=== PATIENT | female | born 1950 | race Caucasian/White ===

== ENCOUNTER 2016-11-17 05:33 | Inpatient (IN) | payer BC, OTHER ==
[2016-11-04 13:12] LABS: HEMATOCRIT 47.3 % (37.0-47.0); HEMOGLOBIN 16.4 gm/dL (12.0-15.0); MCH 33.2 pg (26.0-34.0); MCHC 34.7 g/dL (28.0-37.0); MCV 95.7 fL (80.0-100.0); RBC 4.94 mil/uL (4.20-5.00); RDW 13.7 % (10.5-14.5); WBC 7.5 thou/uL (4.0-11.0)
[2016-11-04 13:16] LABS: URINE BILIRUBIN 2+ (Negative); URINE BLOOD TRACE (Negative); URINE GLUCOSE-RANDOM* NEGATIVE (Negative); URINE KETONES TRACE (Negative); URINE LEUKOCYTES-REFLEX TRACE (Negative); URINE PROTEIN (DIPSTICK) 2+ (Negative); URINE SPECIFIC GRAVITY >= 1.030 (1.003-1.035)
[2016-11-04 13:18] LABS: URINE COLOR DARK YELLOW
[2016-11-04 13:19] LABS: ICTOTEST (BILI CONFIRMATORY) Positive (Negative)
[2016-11-04 13:26] LABS: INR 1.1; PROTIME 11.3 Seconds (9.3-11.4)
[2016-11-04 13:29] LABS: ALBUMIN 4.2 g/dL (3.4-5.0); CALCIUM 10.9 mg/dL (8.5-10.1); CREATININE 1.9 mg/dL (0.6-1.0); POTASSIUM 4.4 mmol/L (3.5-5.1); TOTAL BILIRUBIN 1.4 mg/dL (<0.1-1.0); TOTAL PROTEIN 8.3 g/dL (6.4-8.2)
[2016-11-04 13:54] LABS: HYALINE CASTS 0-3 Few /LPF (None Seen); SQUAMOUS 4-10 Moderate /LPF (0-3)
[2016-11-04 13:55] LABS: CALCIUM OXALATE 4-10 Moderate /LPF (None Seen)
[2016-11-04 13:56] LABS: URINE RBC 0-2 Rare /HPF (0-2); URINE WBC-REFLEX >25 Many /HPF (0-5)
[2016-11-05 05:13] LABS: GLYCOHEMOGLOBIN (HGB A1C) 9.6 % (4.8-5.6)
[~2016-11-17] VITALS: Ht 172.7 cm; Wt 105.2 kg
[2016-11-17] VITALS (10 sets, daily range): BP systolic 103–129; BP diastolic 54–84
--- NOTE | ~2016-11-17 | O ---
[facility] [place] [address] OPERATIVE REPORT Name: EM EDWARDS Room #: 542-P [facility] IN M.R.#: [id number] Admission: 11/17/16 Attend Phys: Nathaniel Espino MD Discharge: 11/20/16 Date of : 54 Report #: [id number] THIS REPORT FOR: //name// CC: Akira Estrella DATE OF SERVICE: 11/17/2016 PREOPERATIVE DIAGNOSES: 1. Left knee degenerative joint disease, severe. 2. Obesity with body mass index of 32.23. POSTOPERATIVE DIAGNOSES: 1. Left knee degenerative joint disease, severe. 2. Obesity with body mass index of 32.23. PROCEDURE: Left total knee arthroplasty. SURGEON: Nathaniel Espino MD. ENTRY ANALYST: Charles Jacobs, nurse practitioner. INDICATIONS FOR ENTRY ANALYST: During the course of operation, extensive manipulation, retraction, and limb positioning was required. This was afforded to me by my asset protection assistant. ANESTHETIC: General. INDICATIONS: See hospital H and P. IMPLANTS UTILIZED: We used a DePuy PFC knee system. We used a 4 narrow femoral component, size 3 tibia, 10 mm insert with a 41 oval dome patella. DESCRIPTION OF PROCEDURE: After adequate general anesthesia had been obtained, the patient's left lower extremity was prepped and draped in the usual meticulous sterile fashion. Limb was exsanguinated with gravity. Tourniquet was inflated to 350 torr. Anterior midline incision was made, subQ divided sharply. Hemostasis obtained with electrocautery. Medial parapatellar incision was made. Infrapatellar fat pad excised. Medial release performed. The drill was used to drill the distal femur. This hole was enlarged, irrigated, suctioned, and the intramedullary guide placed the full length of the femur. Distal femoral cutting guide pinned in to appropriate height. Distal femoral cut was made. We took a measurement and 4 gave us the best reapproximation of the patient's anatomy. We then marked the femur and impacted the cutting guide into place. The anterior, posterior, and chamfer cuts were made. Nalini was [facility] [address] [place] [address] OPERATIVE REPORT Name: EM EDWARDS Room #: 542-P DIS IN M.R.#: [id number] Admission: 11/17/16 Attend Phys: Nathaniel Espino MD Discharge: 11/20/16 Date of : 54 Report #: [id number] used to remove additional osteophytes. At this time, the ACL was transected, tibia translated anteriorly, menisci were excised. Drill was used to drill the central portion of the tibia. This hole was enlarged, irrigated, suctioned, and the intramedullary guide placed the full length of tibia. Proximal tibial cutting guide placed at appropriate height. Proximal tibial cut was made. 3 tray gave us the best coverage on the tibia. We then placed the trial components and with 10 spacer, she had the best flexion and extension gap. Patella tracked normally. At this time, patella was measured, cutting guide clamped into place, patellar cut was made. A 41 template gave us the best coverage. Pedicles were drilled, trial component put in position, it tracked normally. At this time, the trial components were removed. Tibial keel cuts were made. Distal femur drilled. We irrigated the knee with both pulse lavage and antibiotic irrigation. The bone plugs were placed to the proximal tibia and distal femur. The cement was vacuum mixed, and when it reached the appropriate consistency, the knee was thoroughly dried. The tibial tray was cemented into place. Excess cement was removed. The polyethylene liner was impacted in to place, and the femur impacted in to place and the knee was taken out to 30 degrees of flexion with uniform compression placed across the components. Patellar button was then cemented into place and again excess cement was removed. Irrigation was placed in the wound and allowed to rest in the wound until the cement fully cured. The knee was then irrigated, dried, and thoroughly inspected. Drains were placed superolaterally both deep and superficial. Retinacular layer closed with combination of interrupted [id number] #1 Vicryl, as well as running #1 Tevdek. SubQ closed with 2-0 Monocryl. Skin closed with zheng. Sterile compressive dressing was applied. Tourniquet deflated. <ELECTRONICALLY SIGNED> By: Nathaniel Espino MD 11/24/16 0720 0950 1235 Nathaniel Espino MD /nt
--- NOTE | ~2016-11-17 | EKG ---
[place] [address] [facility] [place] [address] ELECTROCARDIOGRAM REPORT Name: EM EDWARDS Room #: PRE IN [facility]#: [id number] Admission: Attend Phys: Nathaniel Espino MD Discharge: Date of : 54 Report #: [id number] THIS REPORT FOR: //name// [facility] Test Date: 2016-11-04 Test Time: 13:07:32 Pat Name: EM EDWARDS Department: Room: Gender: F [employer] Process Plant Operator: kristen : 1950 Requested By: Nathaniel Espino Order Number: [id number] MD: Gustavo Lee Measurements Intervals [place] Rate: 88 P: 41 MT: 181 QRS: 41 QRSD: 90 T: 64 QT: 360 QTc: 436 Interpretive Statements Sinus rhythm Normal tracing Compared to ECG 10/26/2014 10:49:50 No significant changes Electronically Signed On 11-05-2016 8:46:36 CDT by Gustavo Lee [email or web address] <ELECTRONICALLY SIGNED> By: Gustavo Lee MD, [facility] 11/05/16 0846 1307 1307 Gustavo Lee MD, FACC /EPI
--- NOTE | ~2016-11-17 | H ---
[facility] [place] [address] HISTORY AND PHYSICAL Name: EM EDWARDS Room #: 542-P DIS IN M.R.#: [id number] Admission: 11/17/16 Attend Phys: Nathaniel Espino MD Discharge: 11/20/16 Date of : 54 Report #: [id number] THIS REPORT FOR: //name// For History and Physical, please see office documentation/handwritten note in the patient's medical record. <ELECTRONICALLY SIGNED> By: Nathaniel Espino MD 11/24/16 0720 1224 Nathaniel Espino MD /
[~2016-11-17 05:33] MED LIST: ALBUTEIN 225 GM/100 IV; ALLOPURINOL 10100 M1 PO; ANTACID650 MG OR; ARANESP100 MCG/0. SQ; CALCIUM 500 +1 EAC5 PO; CENTRUM SILVER1 EAC4 PO; CIPROFLOXA IV; ELIQUIS2.5 MG PO; FUROSEMIDE; FUROSEMIDE 40 M40 M1 OR; HYDROCODONE-AP1 EA11 PO; JANUVIA100 MG PO; KEFLEX500 MG PO; LACTULOSE10 GM/15 M OR; LIPITOR10 MG PO; LOPRESSOR25 PO; MAGOX 400400 MG PO; METFORMIN; POTASSIUM20 PO; PRILOSEC 20 MG20 MG PO; PROGRAF0.5 MG PO; PROGRAF1 MG PO; SOLU MEDROL IV; TOPAMAX50 MG PO; TRULICITY0.75 MG/0. SQ; TUMS PO; UROCIT-K10 ME1 PO; URSO FORTE500 M1 PO; VITAMIN D1000 UNI1 PO; XIFAXAN550 M1 OR; [UNRECOGNIZED DRUG - REMARK]
[2016-11-18] VITALS (7 sets, daily range): BP systolic 107–144; BP diastolic 60–69
[2016-11-18 05:55] LABS: ABSOLUTE NEUTROPHILS 4.6 thou/uL (1.4-8.2); BASOPHILS 0.3 % (0.0-2.0); EOSINOPHILS 5.2 % (0.0-3.0); HEMATOCRIT 35.6 % (37.0-47.0); HEMOGLOBIN 12.6 gm/dL (12.0-15.0); LYMPHOCYTES 23.4 % (24.0-44.0); MCH 33.7 pg (26.0-34.0); MCHC 35.3 g/dL (28.0-37.0); MCV 95.4 fL (80.0-100.0); MONOCYTES 8.4 % (1.0-8.0); PLATELET COUNT 129 thou/uL (150-400); POLYS 62.7 % (36.0-66.0); RBC 3.73 mil/uL (4.20-5.00); RDW 13.9 % (10.5-14.5); WBC 7.4 thou/uL (4.0-11.0)
[2016-11-18 05:56] LABS: MANUAL DIFF NO
[2016-11-18 06:07] LABS: CREATININE 1.8 mg/dL (0.6-1.0); MAGNESIUM 1.5 mg/dL (1.8-2.4); POTASSIUM 4.3 mmol/L (3.5-5.1)
[2016-11-19 04:00] VITALS: BP 180/85
[2016-11-19 05:37] LABS: HEMOGLOBIN 12.3 gm/dL (12.0-15.0); MCH 33.4 pg (26.0-34.0); MCHC 35.1 g/dL (28.0-37.0); MCV 95.2 fL (80.0-100.0); RBC 3.68 mil/uL (4.20-5.00); RDW 14.3 % (10.5-14.5); WBC 7.8 thou/uL (4.0-11.0)
[2016-11-19 06:21] VITALS: BP 162/75
[2016-11-19 08:18] VITALS: BP 133/63
[2016-11-19 10:18] VITALS: BP 133/63
[2016-11-19 15:15] VITALS: BP 119/68
[2016-11-19 20:00] VITALS: BP 138/69
[2016-11-20 04:00] VITALS: BP 132/68
[2016-11-20 06:13] LABS: HEMATOCRIT 31.2 % (37.0-47.0); HEMOGLOBIN 11.1 gm/dL (12.0-15.0); MCH 33.7 pg (26.0-34.0); MCHC 35.6 g/dL (28.0-37.0); MCV 94.7 fL (80.0-100.0); RBC 3.3 mil/uL (4.20-5.00); RDW 14.1 % (10.5-14.5); WBC 6.1 thou/uL (4.0-11.0)
[2016-11-20] MEDS ORDERED: XARELTO10 MG PO (07:03)
[2016-11-20] MEDS ORDERED: HYDROCODONE-APA1 TA1 PO (07:03)
[2016-11-20 08:23] VITALS: BP 131/66
[2016-11-20 10:46] VITALS: BP 110/69
[2016-11-20 11:10] VITALS: BP 110/69
[2016-11-20 14:00] VITALS: BP 110/69
== END 2016-11-20 14:20 | disposition home health service (06) | DRG 470 ==
LOC: 5S 05:33 → TBA 05:33 → PRE 08:56 → 5S 11:33 → PRE 12:08 → 5S 11-20 14:20
PROVIDERS: Nurse Practitioner; Orthopaedic Surgery
PROC: 0SRD0J9 Replacement of Left Knee Joint with Synthetic Substitute, Cemented, Open Approach (ICD-10-PCS; principal; 2016-11-17)
DX: M17.12 Unilateral primary osteoarthritis, left knee (principal); Z94.4 Liver transplant status; E78.5 Hyperlipidemia, unspecified; E11.65 Type 2 diabetes mellitus with hyperglycemia; E11.22 Type 2 diabetes mellitus with diabetic chronic kidney disease; I12.9 Hypertensive chronic kidney disease with stage 1 through stage 4 chronic kidney disease, or unspecified chronic kidney disease; N18.3 Chronic kidney disease, stage 3 (moderate); K21.9 Gastro-esophageal reflux disease without esophagitis; I95.9 Hypotension, unspecified; E66.9 Obesity, unspecified; J45.909 Unspecified asthma, uncomplicated; M10.9 Gout, unspecified; Z96.651 Presence of right artificial knee joint; Z79.4 Long term (current) use of insulin; Z79.899 Other long term (current) drug therapy; Z87.442 Personal history of urinary calculi; Z93.2 Ileostomy status; Z90.49 Acquired absence of other specified parts of digestive tract; Z85.810 Personal history of malignant neoplasm of tongue; Z68.35 Body mass index [BMI] 35.0-35.9, adult; Z86.19 Personal history of other infectious and parasitic diseases; Z87.440 Personal history of urinary (tract) infections; Z82.61 Family history of arthritis; Z83.79 Family history of other diseases of the digestive system
CPT/HCPCS: 10785; 50010; 50101; 50415; 50954; 51130; 51225; 51320; 51412; 51771; 52001; 52282; 53000; 53078; 53364; 56525; 56527; 62110; 62900; 70005